=== PATIENT | female | born 1960 | race Two or more races ===

== ENCOUNTER → 2024-10-08 | Outpatient (CLI) | payer MEDICAID, SELFPAY ==
--- NOTE | 2024-10-08 09:00 | XR_ITS ---
Examination: Screening digital mammography, bilateral Computer aided detection 3-D breast Tomosynthesis, bilateral Date and time of exam: October 08, 2024 0840 hours Compared to mammograms dating to May 18, 2015 Indication: Screening Technique: Nonmagnified MLO, CC views of the breasts to been obtained, reconstructed from 3-D Tomosynthesis images. R2 computer aided detection program utilized for evaluation of suspicious masses and/or abnormal calcifications. 3-D Tomosynthesis images obtained. Findings: Scattered areas of fibroglandular density. Benign calcifications. No interval suspicious masses Impression: BI-RADS category II: Benign Findings. Recommend 1 year follow-up mammogram.
== END | disposition home or self-care (01) ==
LOC: CDIM 08:28
PROVIDERS: Referring Provider Physician Assistant; Visit Provider Physician Assistant
DX: Z12.31 Encounter for screening mammogram for malignant neoplasm of breast (principal); R92.323 Mammographic fibroglandular density, bilateral breasts; R92.1 Mammographic calcification found on diagnostic imaging of breast
CPT/HCPCS: 77063; 77067

== ENCOUNTER 2025-04-14 19:56 | Emergency (ER) | payer MEDICAID, SELFPAY ==
[2025-04-14 19:57] VITALS: BMI 36.6
[2025-04-14 20:26] VITALS: BP 179/90; PULSE 90; RESP 20; TEMP 36.7; O2SAT 98
--- NOTE | 2025-04-14 20:44 | EKG_ITS ---
[facility] Test Date: 2025-04-14 Pat Name: KENNY FLORES Department: Room: - Gender: Female [employer]: : 1960 Requested By: Jude Powers Order Number: [id number] Reading MD: Jude Powers Measurements Intervals [place] Rate: 73 P: 49 NV: 147 QRS: 11 QRSD: 83 T: 67 QT: 379 QTc: 420 Interpretive Statements SINUS RHYTHM LOW QRS VOLTAGE IN PRECORDIAL LEADS [QRS DEFLECTION < 1.0 mV IN CHEST LEADS] POSSIBLE ANTERIOR MYOCARDIAL INFARCTION , PROBABLY OLD [30 ms Q WAVE IN V3/V4, OR R < 0.2 mV IN V4] Compared to ECG 09/01/2019 17:52:02 Low QRS voltage now present Myocardial infarct finding now present T-wave abnormality no longer present /store/S0/[id number]/ecg/[id number].pdf
--- NOTE | 2025-04-14 20:46 | XR_ITS ---
Examination: CT brain head without contrast. 2-D sagittal coronal reconstructions Date and time of exam: April 14, 2025, 2103 hours CTDI: vol (mGy): 49.2 DLP: (mGycm): 952 Technique: Multiple CT axial sections of the brain have been obtained, 5 mm slice thickness. Contrast has not been administered. 2-D sagittal, coronal reconstructions have been obtained Low dose protocols were performed. One or more of the following dose reduction techniques were used; automated exposure control, adjustment of the mA and/or KV according to patient size, use of iterative reconstruction technique. Findings: No significant ventricular enlargement. Intra-axial or extra-axial hemorrhage density is not seen. No mass effect or midline shift Basal cisterns are not remarkable. Fourth ventricle is midline. Cranial vault intact. Right scalp probable sebaceous cysts Impression: Negative for acute hemorrhage, mass effect or midline shift Chronic sphenoid sinusitis Advise clinical correlation and follow-up accordingly
--- NOTE | 2025-04-14 21:16 | EDNOTE_ITS ---
ED Headache RME/HPI General Chief Complaint: Headache Stated Complaint: HIGH BLOOD PRESSURE, HEADACHE Time Seen by Provider: 04/14/25 20:38 Arrival date/time: 04/14/25 19:56 RME / HPI RME / HPI Narrative: 65-year-old female with a past medical history of hypertension who takes benazepril 10 mg daily as well as hypothyroidism and takes 25 mcg of levothyroxine daily presents to the ER complaining of gradual onset headache which started after seeing her blood pressure at home which was 199/90. Denies vision changes, numbness, tingling, weakness, vomiting, fever. Related Data Home Medications ?Medication ?Instructions ?Recorded ?Confirmed benazepril 5 mg tablet 5 mg PO QDAY 06/12/22 levothyroxine 25 mcg capsule 25 mcg PO QDAY 06/12/22 0 12/02/23 estradiol 0.01% (0.1 mg/gram) 2 g vaginal DIRECTED 12/02/23 12/02/23 vaginal cream (Estrace) Allergies Allergy/AdvReac Type Severity Reaction Status Date / Time Penicillins Allergy Intermediate Rash Verified 04/14/25 19:57 ED Exam Narrative Physical exam: Constitutional: Patient alert and oriented. Well appearing. No acute distress. Not toxic appearing. Head: Normocephalic, atraumatic. Eyes: Periorbital regions bilaterally normal to inspection. Conjunctiva clear bilaterally. Sclera anicteric bilaterally. Pupils equal, round, reactive to light bilaterally. Extraocular movements intact bilaterally. Mouth/Throat: Mucous membranes moist. No stridor or muffled voice. No trismus. Handling secretions without difficulty. Airway widely patent. Neck: Supple. Trachea midline. No JVD. No nuchal rigidity. Normal range of motion. Respiratory: Normal effort. No accessory muscle use or respiratory distress. Lungs clear to auscultation bilaterally without rhonchi, wheezes, or crackles. Cardiovascular: RRR. Normal S1/S2. No murmurs or rubs. Radial pulses intact b ilaterally. Abdomen: Soft. Non-distended. Non-tender throughout. No pulsatile mass. No guarding or rebound. Negative Bianchi?s sign. Negative McBurney?s point tenderness. Negative Rovsing?s. Back: No midline tenderness or step-offs. No CVA tenderness to palpation bilaterally. Upper Extremities: No gross deformities. Lower Extremities: No gross deformities. No edema or calf tenderness. Neuro: Speech normal. No gross motor or sensory deficits to upper or lower extremities bilaterally. GCS 15. CN II?XII grossly intact. Cerebellar: Vbdiez-pa-yssp testing normal. Rapid alternating movements intact. Normal gait observed. Romberg negative. Skin: Warm, dry, normal color. Psych: Normal affect. Cooperative. Normal insight. Course Quality Measures none Orders Category Date Time Status EKG (ED ONLY) *Do not use* NOW Care 04/14/25 20:[address] head/brain wo con Stat Exams 04/14/25 20:46 Completed EKG (ED Only) Stat Exams 04/14/25 20:44 Draft CBC Stat Lab 04/14/25 21:18 Completed Comprehensive Metabolic Panel Stat Lab 04/14/25 21:18 Completed TSH [Thyroid Stimulating Hormone] Stat Lab 04/14/25 21:18 Completed Troponin I Stat Lab 04/14/25 21:18 Completed HYDROcodone*/APAP 5/325 [Sandwich 5/325] Med 04/14/25 20:46 Discontinued 1 tab PO X1 ONE Ondansetron Odt [Zofran Odt] Med 04/14/25 20:46 Discontinued 4 mg PO X1 ONE Reevaluation(s) Reevaluation #1: At the time of reassessment, the patient remains alert and oriented ?3 with GCS 15. Patient states her symptoms are resolved and she is in no pain at this time. Patient did not take her headache medicine. Elevated vitals are normal, pain is controlled, and the patient is tolerating oral intake without nausea or vomiting. The patient is agreeable to discharge and verbalizes understanding of the diagnosis, studies, treatment plan, medications (including side effects/precautions), and strict ER return precautions as discussed in the ED. All concerns were addressed, and the patient is comfortable with the plan. Vital Signs Vital signs: Vital Signs Temperature 98.1 F 04/14/25 20:26 Pulse Rate 90 04/14/25 20:26 Respiratory Rate 04/14/25 20:26 Blood Pressure 179/90 H 04/14/25 20:26 Pulse Oximetry (%) 98 04/14/25 20:26 Oxygen Delivery Method Room Air 04/14/25 20:26 PROCEDURES: EKG Interpretation #1: Date of EK04/14/25 Time of EK:50 Rate: 73 Interpretation: Interpreted by me EKG Impression: Normal sinus rhythm Additional EKG comment: No ST elevation or T wave inversions. Poor R wave progression. Headache MDM Narrative MDM Narrative:: This patient's evaluation indicates the cause of the headache is very likely thomas ign. The most serious possible causes of headache, including hemorrhage and infection, have been excluded based upon today's assessment. CT imaging was performed without acute findings at this time. The patient has nonetheless been warned to return immediately for worsening symptoms, change in pattern of current symptoms, or other acute problems. Although this patient's blood pressure was out of the normal range on evaluation today, the patient does not have clinical evidence of acute end-organ injury. The patient has been counseled on the risks of poorly or uncontrolled blood pressure and advised of the importance of close follow-up within the next 3-4 days to confirm that this blood pressure elevation is the result of a chronic hypertensive condition and to have it treated if so. The patient has also been counseled to return immediately if any further symptoms develop. Patient data External records reviewed:: None Clinical information provided by:: patient Social determinants that could affect healthcare access:: none Patient has the following chronic illnesses:: Hypertension How is presenting disease/condition affected by chronic disease/condition?: uneffected by Evaluation data The following diagnostics were reviewed and interpreted by me:: lab results and radiology exam(s) Lab and/or radiology exams considered but not ordered:: Additional Labs and radiology considered, but not ordered as they were not clinically indicated at this time. Interpretation Summary: EKG without acute ischemia, high grade AV block, arrhythmia CBC without severe leukocytosis, anemia, or thrombocytopenia CMP without severe hyperbilirubinemia, transaminitis, acute renal failure or severe electrolyte derangement Lipase without severe elevation Medications / Prescriptions Medications or Prescriptions considered but not ordered:: I considered prescription management (both outpatient prescriptions AND drug treatment in the ER) and decided that this was necessary and was prescribed as charted. Medication administrations:: Medication Administration History Discontinued Medications Hydrocodone Bitart/Acetaminophen (Hydrocodone/Apap 5/325 Tablet) 1 tab PO X1 ONE Stop: 04/14/25 20:47 Last Admin: 04/14/25 21:14 Dose: Not Given Documented By: BD Non-Admin Reason: Patient Refused Ondansetron HCl (Ondansetron Odt 4 Mg Tabrap) 4 mg PO X1 ONE; Protocol Stop: 04/14/25 20:47 Last Admin: 04/14/25 21:14 Dose: Not Given Documented By: VERONICA Non-Admin Reason: Patient Refused As noted Consultations Consultation(s) initiated? (list below): No Diagnosis Differential diagnosis headache: migraine, tension headache, subarachnoid hemorrhage and headache Most likely diagnosis given after review of the tests above:: Tension headache Admission Indicated Admission indicated?: not indicated Admission Request Was there a request for admission?: No Disposition Plan Disposition Plan: Discharge Discharge Attestation Discharge Attestation: The patient and all family members were given an opportunity to ask questions and understood the discharge instructions. Discharge instructions specifically effects, indications for sooner follow up or return to the emergency department, and the expected course of current diagnosis. Patient condition: Stable Discharge Plan Plan Patient Disposition: HOME (Self Care) Patient condition on transfer: Stable Prescriptions/Referrals Prescriptions/Med Rec: No Action levothyroxine 25 mcg capsule 25 mcg PO QDAY benazepril 5 mg tablet 5 mg PO QDAY estradiol [Estrace] 0.01 % (0.1 mg/gram) cream 2 g vaginal DIRECTED Patient Comments: twice a week Referrals: Candie Wharton PA-C [Primary Care Provider] - In 1 week Problem List Clinical Impression: Headache, Hypertension Patient/Caregiver Discharge Instructions Education Materials: Self-Care for Headaches, ED High Blood Pressure ... Additional Instructions: Follow up with your primary medical doctor within 24 hours. Return to the Emergency Room immediately for any new, worsening, continuing symptoms or any concerns at all. Return to the Emergency Room within 24 hours if you are unable to follow up with your primary medical doctor within 24 hours. Print Language: Brazilian Stand Alone Forms: [employer] Award Info., Patient Portal Info Letter SULEMA/MIGUEL Supervising Physician MICHAEL Supervising Physician: Dr. Bird
[2025-04-14 21:34] LABS: Basophils # (Auto) 0.1 Thou/mm3 (0.0-0.2); Basophils % (Auto) 1 % (0-2.5); Eosinophils # (Auto) 0.2 Thou/mm3 (0.0-0.5); Eosinophils % (Auto) 3 % (0-10); Hematocrit 39.5 % (36.0-46.0); Hemoglobin 13.2 g/dL (12.0-16.0); Immature Granulocytes Auto 0.05 Thou/mm3 (0.00-0.00); Lymphocytes # (Auto) 4.0 Thou/mm3 (1.0-4.8); Lymphocytes % (Auto) 47 % (10-50); Mean Corpuscular HGB Conc 33.4 g/dl (31.0-37.0); Mean Corpuscular Hemoglobin 29.7 pg (25.0-35.0); Mean Corpuscular Volume 89 fL (80-100); Monocytes # (Auto) 0.7 Thou/mm3 (0.0-0.8); Monocytes % (Auto) 8 % (0-12); Neutrophils # (Auto) 3.6 Thou/mm3 (1.8-7.7); Neutrophils % (Auto) 42 % (37-80); Nucleated Red Blood Cell # 0.00 Thou/mm3 (0.00-0.00); Nucleated Red Blood Cell % 0 /100 WBC (0); Platelet Count 276 Thou/mm3 (140-440); RDW Standard Deviation 44.9 fL (36.4-46.3); Red Blood Count 4.45 Miln/mm3 (4.00-5.20); White Blood Count 8.6 Thou/mm3 (3.6-11.0)
[2025-04-14 22:24] LABS: Alanine Aminotransferase 32 U/L (10-49); Albumin, Serum 4.5 gm/dL (3.4-4.8); Albumin/Globulin Ratio 1.6 (1.2-2.2); Alkaline Phosphatase 88 U/L (46-116); Anion Gap 8 (7-16); Aspartate Amino Transferase 32 U/L (0-34); BUN/Creatinine Ratio 14 Ratio (12-20); Bilirubin,Total 0.6 mg/dL (0.3-1.2); Blood Urea Nitrogen 13 mg/dL (9-23); Calcium 9.6 mg/dL (8.3-10.6); Calcium (Corrected) 9.6 mg/dL (8.5-10.1); Carbon Dioxide 24.6 mMol/L (20.0-31.0); Chloride 108 mMol/L (98-107); Creatinine (Component) 0.9 mg/dL (0.6-1.3); Estimated Creatinine Clearance 73.9 mL/min (>60); Globulin 2.9 gm/dL (2.3-3.5); Glucose 95 mg/dL (74-106); Osmolality,Calculated 281 (275-295); Potassium 4.2 mMol/L (3.4-5.1); Sodium 141 mMol/L (136-145); Thyroid Stimulating Hormone 2.87 uIU/mL (0.55-4.78); Total Protein 7.4 gm/dL (5.7-8.2); Troponin I < 0.002 ng/mL (0.0-0.045); eGFR > 60 See Note
[2025-04-14 22:55] VITALS: BP 177/103; BP 183/107; PULSE 70; RESP 20; TEMP 36.7; O2SAT 100
--- NOTE | 2025-04-14 23:05 | PC.NURSE ---
/sylvain munoz aware b/p 177/103 right arm , 183/107 left arm no new orders ok to d/c per provider
== END 2025-04-14 23:09 | disposition home or self-care (01) ==
PROVIDERS: Physician Assistant; Emergency Provider Emergency Medicine; PCP Physician Assistant
DX: R51.9 Headache, unspecified (principal); I10 Essential (primary) hypertension; E03.9 Hypothyroidism, unspecified
CPT/HCPCS: 36415; 70450; 80053; 84443; 84484; 84703; 85025; 93005; 99283